=== PATIENT | male | born 1990 | race Hispanic/Latino ===

== ENCOUNTER 2018-02-08 09:21 | Emergency (ER) | payer BC ==
[2018-02-08 09:44] VITALS: BP 133/89; PULSE 75; RESP 16; TEMP 98.4; O2SAT 97
[2018-02-08] MEDS ORDERED: TDAP Vaccine 0.5 mL Syr IM ONE (10:12)
--- NOTE | 2018-02-08 10:16 | ED PDOC ---
Arrival/HPI - General Historian: Patient - History of Present Illness Time/Duration: 1-3 hours Symptom Onset: Sudden Symptom Course: Improving Activities at Onset: Other (opening can) - General Chief Complaint: Abnormal Skin Integrity - History of Present Illness Narrative History of Present Illness (Text): 02/08/18 10:13 27M no significant PMHx presents to [facility] ED w/ Cut on Right middle finger after cutting it on a can lid. At this time bleeding has stopped. No signs of erythema or purulent drainage. Cut involves the skin and the dermis. Neurovascular intact. Denies fevers, chills, chest pain, shortness of breath, nausea, vomiting, diarrhea, numbness/tingling in extremities (Gio Dolan) Past Medical History - Provider Review Nursing Documentation Reviewed: Yes - Travel History Have you recently traveled outside [place] w/in the past 3 mons?: No - Past History Past History: Non-Contributing - Psychiatric Hx Psychophysiologic Disorder: No Hx Substance Use: No Family/Social History - Physician Review Nursing Documentation Reviewed: Yes Family/Social History: Other (non-contributory) Smoking Status: Never Smoked Hx Alcohol Use: Yes Frequency of alcohol use: Socially Hx Substance Use: No Allergies/Home Meds Allergies/Adverse Reactions: Allergies No Known Allergies Allergy (Verified 02/08/18 09:41) Home Medications: Home Meds Medication Instructions Recorded Confirmed No Known Home Med 02/08/18 02/08/18 Review of Systems - Review of Systems Constitutional: absent: Fatigue, Fevers, Night Sweats Eyes: absent: Vision Changes, Photophobia ENT: absent: Hearing Changes, Tinnitus, TMJ Pain Respiratory: absent: SOB, Cough, Sputum Cardiovascular: absent: Chest Pain, Palpitations, Edema, Calf Pain Gastrointestinal: absent: Abdominal Pain, Stool Changes, Diarrhea, Nausea, Vomiting Genitourinary Male: absent: Dysuria, Urinary Output Changes Musculoskeletal: absent: Arthralgias, Neck Pain, Joint Swelling Skin: absent: Rash, Skin Lesions Neurological: absent: Headache, Dizziness Endocrine: absent: Diaphoresis Physical Exam Vital Signs Reviewed: Yes Temperature: Afebrile Blood Pressure: Normal Pulse: Regular Respiratory Rate: Normal Appearance: Positive for: Well-Appearing, Non-Toxic, Comfortable Pain Distress: None Mental Status: Positive for: Alert and Oriented X 3 - Systems Exam Head: Present: Atraumatic Pupils: Present: PERRL Extroacular Muscles: Present: EOMI Conjunctiva: Present: Normal Mouth: Present: Moist Mucous Membranes Neck: Present: Normal Range of Motion Respiratory/Chest: Present: Clear to Auscultation, Good Air Exchange. No: Respiratory Distress, Accessory Muscle Use Cardiovascular: Present: Regular Rate and Rhythm, Normal S1, S2. No: Murmurs Abdomen: No: Tenderness, Distention, Peritoneal Signs Back: Present: Normal Inspection Upper Extremity: Present: Other (Laceration on Right middle finger involving skin and dermis. No involement of tendon) Lower Extremity: Present: Normal Inspection. No: Edema Neurological: Present: GCS=15, Speech Normal Skin: Present: Warm, Normal Color. No: Rashes Psychiatric: Present: Alert, Oriented x 3 Vital Signs Temp Pulse Resp BP Pulse Ox 02/08/18 09:41 98.4 F 75 16 133/89 97 Medical Decision Making ED Course and Treatment: 02/08/18 10:17 Clean would extensively w/ betadine and peroxide, explore closure w/ steri-strips bactracin ointment ontop TDaP vaccine (Gio Dolan) Patient Seen With Resident: In agreement with resident note which contains more details about the patient. Patient was seen and evaluated with resident. Came up with plan and treatment together. (Romario Correa) - Medication Orders Current Medication Orders: Discontinued Medications Tetanus/Reduced Diphtheria/Acell Pertussis (Boostrix Vaccine Inj) 0.5 ml IM .ONCE ONE Stop: 02/08/18 10:13 Last Admin: 02/08/18 11:21 Dose: 0.5 ml Immunization Registry Document 02/08/18 11:21 EQ (Rec: 02/08/18 11:22 EQ [id number]) Immunization Registry Consent Date 02/08/18 - PA / AIR FILLER / Resident Statement / has reviewed & agrees with the documentation as recorded. / has examined the patient and agrees with the treatment plan. Disposition/Present on Arrival - Present on Arrival Any Indicators Present on Arrival: No History of DVT/PE: No History of Uncontrolled Diabetes: No Urinary Catheter: No History of Decub. Ulcer: No History Surgical Site Infection Following: None - Disposition Have Diagnosis and Disposition been Completed?: Yes Disposition Time: 11:13 Patient Plan: Discharge - Disposition Diagnosis: Laceration of finger Disposition: HOME/ ROUTINE Condition: GOOD Discharge Instructions (ExitCare): Laceration Repair With Glue (DC) Additional Instructions: Thank you for letting us take care of you today. You were treated for laceration on your finger. The emergency medical care you received today was directed at your acute symptoms. If you were prescribed any medication, please fill it and take as directed. It may take several days for your symptoms to resolve. Return to the Emergency Department if your symptoms worsen, do not improve, or if you have any other problems. Keep stitches in for 7-10 days. Keep clean, apply bactracin ointment to affected area for the next 2-3 days. Please contact your doctor or call one of the physicians/clinics you have been referred to that are listed on the Patient Visit Information form that is included in your discharge packet. Bring any paperwork you were given at discharge with you along with any medications you are taking to your follow up visit. Our treatment cannot replace ongoing medical care by a primary care provider (PCP) outside of the emergency department. Thank you for allowing the [facility] team to be part of your care today. Referrals: PCP,NO [Primary Care Provider] - Follow up with primary Forms: [employer] (Spanish)
--- NOTE | 2018-02-08 11:15 | PCM.PROC ---
Procedures Attestation:: I certify that I have explained the specified Operation(s) or Procedure(s), risks, benefits and reasonable alternatives to the Patient and/or other person responsible. The opportunity was given to ask questions and all questions answered - Laceration lidocaine 1% simple, single layer linear deep structures intact right hand 5-0 other Site: hand Side (if applicable): right Size (cm): 4 Description: linear Depth: simple, single layer Anesthesia used: lidocaine 1% Anesthesia technique: local infiltration, nerve block Amount (mLs): 4 Pre-repair: wound explored, irrigated extensively, deep structures intact Skin layer closed with: other (Prolene) Size: 5-0 Number of sutures: 3 Technique: simple, interrupted
== END 2018-02-08 11:37 | disposition home or self-care (01) ==
LOC: ED 09:21
DX: S61.212A Laceration without foreign body of right middle finger without damage to nail, initial encounter (principal); W26.8XXA Contact with other sharp object(s), not elsewhere classified, initial encounter; Z23 Encounter for immunization